=== PATIENT | male | born 1990 | race Caucasian/White ===

== ENCOUNTER 2020-10-06 02:17 | Inpatient (IN) | payer MEDICAID ==
[~2020-10-06] VITALS: Ht 167.6 cm; Wt 63.5 kg
[2020-10-06 03:50] LABS: EOSINOPHILS % (AUTO) 4.2 % (1.0-6.0); HEMATOCRIT 47.1 % (41-53); HEMOGLOBIN 15.4 g/dL (13.5-17.5); LYMPHOCYTES # (AUTO) 2.6 K/uL (1.0-4.8); LYMPHOCYTES % (AUTO) 30.8 % (22.0-44.0); MEAN CORPUSCULAR HEMOGLOBIN 27.7 pg (26.0-34.0); MEAN CORPUSCULAR HGB CONC 32.8 G/dL (31.0-37.0); MEAN CORPUSCULAR VOLUME 85 fL (80-100); MONOCYTES # (AUTO) 0.9 K/uL (0.1-1.0); MONOCYTES % (AUTO) 10.3 % (2.0-9.0); NEUTROPHILS # (AUTO) 4.5 K/uL (1.8-7.7); NEUTROPHILS % (AUTO) 53.7 % (40.0-70.0); PLATELET COUNT (AUTO) 177 K/uL (150-450); RED BLOOD CELL COUNT(AUTO) 5.56 MIL/uL (4.50-5.90); RED CELL DISTRIBUTION WIDTH 13.7 % (11.5-14.5)
[2020-10-06 04:13] LABS: ANION GAP 11 mmol/L (8-16); CALCIUM, TOTAL 9.4 mg/dL (8.8-10.5); CARBON DIOXIDE 28 mmol/L (22-29); CHLORIDE 104 mmol/L (98-107); CREATININE 1.13 mg/dL (0.60-1.30); GLOMERULAR FILTR. RATE CALC > 60 mL/min (>60); GLUCOSE,RANDOM 99 mg/dL (70-110); POTASSIUM 4.2 mmol/L (3.5-5.1); SODIUM SERUM 143 mmol/L (136-145); UREA NITROGEN, BLOOD 20 mg/dL (7-18)
[2020-10-06 04:18] LABS: ALANINE AMINOTRANSFERASE 32 U/L (12-78); ALBUMIN 4.3 g/dL (3.4-5.0); ALKALINE PHOSPHATASE 91 U/L (46-116); ASPARTATE AMINOTRANSFERASE 31 U/L (15-37); BILIRUBIN,TOTAL 0.4 mg/dL (0.1-1.0); TOTAL PROTEIN, SERUM 7.9 g/dL (6.4-8.2)
[2020-10-06 05:42] LABS: AMPHET/METH SCREEN,URINE NEGATIVE (NEGATIVE); BARBITURATE SCREEN, URINE NEGATIVE (NEGATIVE); BENZODIAZEPINES SCREEN,URINE NEGATIVE (NEGATIVE); CANNABINOID SCREEN,URINE NEGATIVE (NEGATIVE); COCAINE SCREEN,URINE NEGATIVE (NEGATIVE); METHADONE SCREEN, URINE NEGATIVE (NEGATIVE); OPIATE SCREEN,URINE NEGATIVE (NEGATIVE)
[2020-10-06 05:43] LABS: PHENCYCLIDINE SCREEN,URINE NEGATIVE (NEGATIVE)
[2020-10-06 08:21] LABS: COVID AG,FIA SOURCE NASAL SWAB
[2020-10-06] MEDS ORDERED: QUEtiapine FUMARATE 100 MG TABLET PO PRN (08:45)
[2020-10-06] MEDS ORDERED: MAGNESIUM HYDROXIDE SUSPENSION 30 ML UDCUP PO PRN (08:45)
[2020-10-06] MEDS ORDERED: ACETAMINOPHEN 325 MG TABLET PO PRN (08:45)
[2020-10-06] MEDS ORDERED: GuaiFENesin/D-METHORPHAN [SUGAR-FREE] 200-20MG/10 ML SYRUP UDCUP PO PRN (08:45)
[2020-10-06] MEDS ORDERED: LORazepam 2 MG TABLET PO PRN (08:45)
[2020-10-06] MEDS ORDERED: ZOLPIDEM TARTRATE 10 MG TABLET PO PRN (08:45)
[2020-10-06] MEDS ORDERED: LOPERAMIDE HCL 2 MG CAPSULE PO PRN (08:45)
[2020-10-06] MEDS ORDERED: HydrOXYzine PAMOATE 50 MG CAPSULE PO PRN (08:45)
[2020-10-06] MEDS ORDERED: MAG HYDROX/AL HYDROX/SIMETH ES 30 ML SUSPENSION UDCUP PO PRN (08:45)
[2020-10-06] MEDS ORDERED: PROMETHAZINE HCL 25 MG TABLET PO PRN (08:45)
[2020-10-06] MEDS ORDERED: TUBERCULIN, PURIFIED PROTEIN DERIVATIVE 5 TU/0.1 ML SYRINGE ID ONE (08:45)
[2020-10-06] MEDS: MULTIVITAMINS WITH MINERALS, THERAPEUTIC TABLET PO SCH (09:00)
[2020-10-06] MEDS: FLUoxetine HCL 20 MG CAPSULE PO SCH (09:00)
[2020-10-06] MEDS: OMEGA-3/DHA/EPA/FISH OIL 1,000 MG CAPSULE PO SCH (09:00)
[2020-10-06] MEDS: FOLIC ACID 1 MG TABLET PO SCH (09:00)
[2020-10-06 15:40] VITALS: BP 93/63
[2020-10-06] MEDS: THIAMINE 100 MG TABLET PO SCH (16:46)
[2020-10-06] MEDS: MELATONIN 5 MG TABLET PO SCH (20:06)
[2020-10-07 06:17] VITALS: BP 93/53
[2020-10-07 07:52] LABS: CHOL/HDL RATIO 3.2 (4.2-7.3); FREE T4 (FREE THYROXINE) 0.89 ng/dL (0.76-1.46); THYROID STIMULATING HORMONE 1.39 uIU/mL (0.36-3.74)
[2020-10-07 08:16] LABS: HEMOGLOBIN A1C 5.5 % (3.8-5.6)
[2020-10-07 08:22] VITALS: BP 111/76
[2020-10-07] MEDS: OMEGA-3/DHA/EPA/FISH OIL 1,000 MG CAPSULE PO SCH (09:11)
[2020-10-07] MEDS: FLUoxetine HCL 20 MG CAPSULE PO SCH (09:11)
[2020-10-07] MEDS: MULTIVITAMINS WITH MINERALS, THERAPEUTIC TABLET PO SCH (09:11)
[2020-10-07] MEDS: FOLIC ACID 1 MG TABLET PO SCH (09:11)
[2020-10-07] MEDS: THIAMINE 100 MG TABLET PO SCH ×2 (09:11→16:53)
[2020-10-07 16:15] VITALS: BP 100/62
[2020-10-07] MEDS: MELATONIN 5 MG TABLET PO SCH (20:57)
[2020-10-08 01:54] VITALS: BP 126/66
[2020-10-08] MEDS: OMEGA-3/DHA/EPA/FISH OIL 1,000 MG CAPSULE PO SCH (08:35)
[2020-10-08] MEDS: MULTIVITAMINS WITH MINERALS, THERAPEUTIC TABLET PO SCH (08:35)
[2020-10-08] MEDS: FLUoxetine HCL 20 MG CAPSULE PO SCH (08:35)
[2020-10-08] MEDS: THIAMINE 100 MG TABLET PO SCH ×2 (08:35→16:31)
[2020-10-08 09:03] VITALS: BP 108/68
[2020-10-08] MEDS: FOLIC ACID 1 MG TABLET PO SCH (09:44)
[2020-10-08] MEDS ORDERED: OMEG-135 PO (14:40)
[2020-10-08] MEDS ORDERED: FLUO-191 PO (14:40)
[2020-10-08] MEDS ORDERED: MELA5TAB3 PO (14:40)
[2020-10-08 16:36] VITALS: BP 107/64
[2020-10-08] MEDS: MELATONIN 5 MG TABLET PO SCH (20:19)
[2020-10-09 06:30] VITALS: BP 114/69
[2020-10-09 08:40] VITALS: BP 107/72
[2020-10-09] MEDS: OMEGA-3/DHA/EPA/FISH OIL 1,000 MG CAPSULE PO SCH (09:46)
[2020-10-09] MEDS: THIAMINE 100 MG TABLET PO SCH (09:46)
[2020-10-09] MEDS: FLUoxetine HCL 20 MG CAPSULE PO SCH (09:46)
[2020-10-09] MEDS: MULTIVITAMINS WITH MINERALS, THERAPEUTIC TABLET PO SCH (09:46)
[2020-10-09] MEDS: FOLIC ACID 1 MG TABLET PO SCH (09:46)
== END 2020-10-09 10:00 | disposition home or self-care (01) | DRG 751 ==
LOC: EMS 02:19 → B3A 11:10
PROVIDERS: ADMIT Psychiatry & Neurology Psychiatry; ATTEND Psychiatry & Neurology Psychiatry
DX: F32.2 Major depressive disorder, single episode, severe without psychotic features (principal); F43.10 Post-traumatic stress disorder, unspecified; J45.909 Unspecified asthma, uncomplicated; R79.89 Other specified abnormal findings of blood chemistry; S61.519A Laceration without foreign body of unspecified wrist, initial encounter; X83.8XXA Intentional self-harm by other specified means, initial encounter; Y93.89 Activity, other specified; Y92.89 Other specified places as the place of occurrence of the external cause; Y99.8 Other external cause status; Z20.822 Contact with and (suspected) exposure to COVID-19
CPT/HCPCS: 80053; 80061; 83036; 84439; 84443; 85025; 86592; 87426; 99285; A9575; G0480